=== PATIENT | male | born 1985 | race Caucasian/White ===

== ENCOUNTER 2022-06-23 04:00 | Emergency (ER) | payer BC ==
[~2022-06-23] VITALS: Ht 180.3 cm; Wt 95.3 kg
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
[2022-06-23] MEDS ORDERED: LORAZEPAM INJ 2 MG/ML VIAL ONE (04:22)
[2022-06-23] MEDS ORDERED: KETOROLAC TROMETHAMINE INJ 30 MG/ML VIAL ONE (04:22)
[2022-06-23] MEDS ORDERED: KETOROLAC TROMETHAMINE INJ 30 MG/ML VIAL IV ONE ×2 (04:30→06:00)
[2022-06-23] MEDS ORDERED: LORAZEPAM INJ 2 MG/ML VIAL IV ONE (04:30)
[2022-06-23] MEDS ORDERED: IV NS 0.9% 1,000 ML IV ONE (04:30)
--- NOTE | 2022-06-23 04:31 | NUR ---
IV ESTABLISHED LAC #20G S/L
--- NOTE | 2022-06-23 04:36 | NUR ---
COMPUTER CONSULTANT AT PT'S BEDSIDE
--- NOTE | 2022-06-23 04:36 | NUR ---
XRAY AT BEDSIDE
[2022-06-23] MEDS ORDERED: KETOROLAC TROMETHAMINE 15 MG/ML VIAL ONE (06:12)
[2022-06-23] MEDS ORDERED: CYCL5TAB PO (06:29)
--- NOTE | 2022-06-23 06:48 | NUR ---
Patient discharged to home in stable condition. Written and verbal after care instructions given. Patient verbalizes understanding of instruction. Pt ambulatory with a steady gait
[2022-06-23 06:50] VITALS: BP 117/82
== END 2022-06-23 06:52 | disposition home or self-care (01) ==
LOC: ER 04:05
DX: M54.50 Low back pain, unspecified (principal); R07.89 Other chest pain; F41.9 Anxiety disorder, unspecified; Z79.899 Other long term (current) drug therapy; V89.2XXA Person injured in unspecified motor-vehicle accident, traffic, initial encounter; Y93.89 Activity, other specified; Y92.89 Other specified places as the place of occurrence of the external cause; Y99.8 Other external cause status
CPT/HCPCS: 99284; 96374; 71045; 96361; 96375; J2060; J1885 ×2; J7030